=== PATIENT | female | born 1950 | race Caucasian/White ===

== ENCOUNTER 2018-12-19 11:44 | Outpatient (CLI) | payer OTHER, MEDICAID, SELFPAY ==
--- NOTE | 2018-12-19 11:38 | DI.RAD_ITS ---
SYMPTOMS/DIAGNOSIS: LEFT KNEE INJURY LEFT KNEE: The patient is status post TKA, the prosthesis in good position, surrounding bone intact with no appreciable interval change when compared with the previous images of 01/15/2015.
== END 2018-12-19 12:04 ==
PROVIDERS: PCP Nurse Practitioner; Visit Provider Orthopaedic Surgery
DX: S89.92XA Unspecified injury of left lower leg, initial encounter (principal); Z96.652 Presence of left artificial knee joint; Z96.651 Presence of right artificial knee joint; Z96.642 Presence of left artificial hip joint; X58.XXXA Exposure to other specified factors, initial encounter
CPT/HCPCS: 99213; 73560